=== PATIENT | female | born 1995 | race Caucasian/White ===

== ENCOUNTER 2016-08-16 23:19 | Emergency (ER) | payer OTHER ==
[~2016-08-16 23:19] MED LIST: ADVIL200 M1 PO; ANAPROX DS550 MG PO; BACTRIM DS TAB1 EAC2 PO; BACTRIM DS TABL1 TAB PO; BACTRIM DS1 TAB PO; BIRTH CONTROL; BIRTHCONTROL PILL; CIPRO500 M2 PO; CYCLOBENZAPRINE5 M1 PO; DARVOCET-N 1001 TAB; DEPO-PROVER150 MG/ML IM; ESTARYLLA PO; FLEXERIL10 MG PO; H PO; HYDROCODON-ACE1 EA16 PO; KEFLEX500 M4 PO; LEXAPRO10 MG PO; LOW-OGESTREL1 TAB PO; MEDROL4 MG/DOSE- PO; MINIPRESS1 MG PO; NAPROSYN500 MG PO; NAPROXYN PO; NASONEX17 GM NS; NECON PO; NECON1 TAB PO; NO HOME MEDICATION XX; NORCO 5/325 TAB1 TAB PO; NORCO 5/3251 TA1 PO; OMEPRAZOLE20 M3 PO; OXYCODON-ACETA1 EAC4 PO; PROZAC20 M1 PO; PYRIDIUM200 M2 PO; SINGULAIR10 MG; TAMIFLU75 MG/CAP PO; ZYRTEC10 M1 PO
[2016-08-17] MEDS ORDERED: NAPROSYN500 M1 PO (00:27)
== END 2016-08-17 00:35 ==
LOC: EDMED 23:19
DX: M94.0 Chondrocostal junction syndrome [Tietze] (principal)